=== PATIENT | female | born 1955 | race African-American/Black ===

== ENCOUNTER 2016-12-20 08:00 | Observation (INO) | payer OTHER ==
[2016-12-20] MEDS ORDERED: IPRATROPIUM/ALBUTEROL SULFATE 3 ML AMPUL.NEB NEB ONE (08:04)
[2016-12-20] MEDS ORDERED: ALBUTEROL SULFATE 2.5 MG/3 ML AMPUL.NEB NEB ONE (08:23)
[2016-12-20 08:31] LABS: BASOPHILS % 1.4 (0.0-1.5); EOSINOPHILS % 3.1 % (0.0-6.8); MEAN CORPUSCULAR HEMOGLOBIN 28.9 pg (28.0-34.0); MEAN CORPUSCULAR VOLUME 89.4 fl (80.0-100.0)
[2016-12-20 08:41] LABS: eGFR (African) > 60; eGFR (Non-African) > 60
[2016-12-20] MEDS ORDERED: LEVOFLOXACIN 250MG/D5W 50ML 250 MG in PREMIX BAG 1 BAG IV ONE (09:22)
[2016-12-20] MEDS ORDERED: LEVOFLOXACIN 500MG/D5W 100ML 500 MG in PREMIX BAG 1 BAG IV ONE (09:22)
[2016-12-20] MEDS ORDERED: methylPREDNISolone SOD SUCC 125 MG/2 ML VIAL IVP ONE (09:22)
--- NOTE | 2016-12-20 09:31 | ED Physician Documentation ---
Dyspnea - HISTORIAN Historian: patient - HPI Stated Complaint: short of breath Chief Complaint: Dyspnea Onset: days ago Duration: worse Initiating Event: upper respiratory illness Severity: severe Exacerbated By: exertion, coughing Associated Symptoms: chills, fever, sweating, productive cough. denies: chest pain, chest discomfort, bloody cough, dizziness, muscle spasms Further Comments: yes (61 year old female patient presents with complaint of chills, cough, and SOB. Patient states her symptoms started a few days ago, reports worsening symptoms. Patient reports she does not have a primary care doctor.) - ROS CONST: no problems EYES/ENT: nasal drainage, nasal congestion GI/: none NEURO/PSYCH: denies: headache MS/SKIN/LYMPH: none - PAST HX Lung Disease: none Cardiac Disease: none PE Risk Factors: none Surgeries/Procedures: cardiac cath (Coronary stents - 10 years ago, at [facility]), other ( x 3) Allergies/Adverse Reactions: Allergies Allergy/AdvReac Type Severity Reaction Status Date / Time Penicillins Allergy Verified 12/20/16 08:30 Home Medications: Ambulatory Orders Medication Instructions Recorded NK [NK] 12/20/16 - SOCIAL HX Smoking History: cigarettes - FAMILY HX Family History: denies: none - VITAL SIGNS Vital Signs: Vital Signs Temp Pulse Resp BP Pulse Ox 97.9 F 88 32 H 165/89 100 12/20/16 08:01 12/20/16 08:31 12/20/16 08:01 12/20/16 08:01 12/20/16 08:31 - REVIEWED ASSESSMENTS Nursing Assessment Reviewed: Yes Vitals Reviewed: Yes Progress - Progress Progress: Reviewed lab and chest xray results. Discussed treatment options. Patient does not have nebulizer machine at home. Work of breathing decreased with O2 on. Recommended observation admission for IV antibiotics, breathing treatments and monitoring. Patient agrees with plan of care. - EKG/XRAY/CT EKG: rhythm (SR, rate 89) ED Results Lab/Radiology - Lab Results Lab Results: Lab Results 12/20/16 12/20/16 08:25 08:25 WBC 8.30 K/ul K/ul (4.00-12.00) RBC 5.24 M/ul H M/ul (3.90-5.20) Hgb 15.1 g/dL g/dL (12.0-16.0) Hct 46.8 % H % (34.5-46.5) MCV 89.4 fl fl (80.0-100.0) MCH 28.9 pg pg (28.0-34.0) MCHC 32.3 g/dL g/dL (30.0-36.0) RDW 13.1 % % (11.3-14.3) Plt Count 247 K/mm3 K/mm3 (130-400) Neut % (Auto) 60.7 % % (39.0-79.0) Lymph % (Auto) 27.9 % % (16.0-50.0) Gallia % (Auto) 5.0 % % (0.0-11.0) Eos % (Auto) 3.1 % % (0.0-6.8) Baso % (Auto) 1.4 (0.0-1.5) Neut # (Auto) 5.0 # k/uL # k/uL (1.4-7.7) Lymph # (Auto) 2.3 # k/uL # k/uL (0.6-4.0) Gallia # (Auto) 0.4 # k/uL # k/uL (0.0-0.9) Eos # (Auto) 0.3 # k/uL # k/uL (0.0-0.6) Baso # (Auto) 0.1 # k/uL # k/uL (0.0-0.5) Reactive Lymphs % 1.9 % % (0.0-5.0) Reactive Lymphs # 0.2 # k/uL # k/uL (0.0-0.8) Sodium 136 mmol/L L mmol/L (137-145) Potassium 4.4 mmol/L mmol/L (3.5-5.1) Chloride 105 mmol/L mmol/L (98-107) Carbon Dioxide 24 mmol/L mmol/L (22-30) BUN 12 mg/dL mg/dL (7-17) Creatinine 1.10 mg/dL H mg/dL (0.52-1.04) Estimated Creat Clear 74 Est GFR ( Amer) > 60 (60 - ) Est GFR (Non-Af Amer) > 60 (60 - ) Glucose 130 mg/dL H mg/dL (74-106) Calcium 9.5 mg/dL mg/dL (8.4-10.2) Total Bilirubin 0.8 mg/dL mg/dL (0.2-1.3) AST 23 U/L U/L (15-46) ALT 27 U/L U/L (13-69) Alkaline Phosphatase 111 U/L U/L (38-126) Total Protein 8.4 g/dL H g/dL (6.3-8.2) Albumin 4.1 g/dL g/dL (3.5-5.0) - Radiology Radiology Impressions: Examination: PA and lateral chest. History: Evaluate lung vu. Comparison exam: None provided Findings: PA lateral chest demonstrate a normal cardiac and mediastinal silhouette. Haziness at the right lung base Blunting of the right costophrenic margins. Left hemithorax without gross abnormality. Osseous structures are appropriate for age. Impression: Right lung base infiltrate/effusion. Electronically signed on Dec 20, 2016 9:06:21 AM FERRY OPERATOR by: Zac Eastman - Orders Orders: ED Orders Category Date Time Status Continuous EKG monitoring Q30M Care 12/20/16 08:23 Active Continuous Pulse Oximetry Q30M Care 12/20/16 08:[address] IV Lock 1T Care 12/20/16 08:23 Active CHEST 2 VIEW [CHEST P.A.&LAT 2 VIEWS] [RAD] Stat Exams 12/20/16 Taken BLOOD CULTURE Stat Lab 12/20/16 Ordered CBC/PLATELET/DIFF Stat Lab 12/20/16 08:25 Completed CMP Stat Lab 12/20/16 08:25 Completed Albuterol Sulfate [Ventolin] Med 12/20/16 08:23 Discontinued 2.5 mg NEB .STK-MED ONE Ipratropium/Albuterol Sulfate [Duoneb] Med 12/20/16 08:04 Discontinued 3 ml NEB .STK-MED ONE Levofloxacin 250Mg/D5w 50Ml [Levaquin] 250 mg Med 12/20/16 09:22 Ordered Premix Bag [Premix Fluid] 1 bag IV NOW Levofloxacin 500Mg/D5w 100Ml [Levaquin] 500 mg Med 12/20/16 09:22 Ordered Premix Bag [Premix Fluid] 1 bag IV NOW methylPREDNISolone SOD SUCC [Solu-MEDROL] Med 11/08/17 09:22 Once 125 mg IVP NOW ONE Oxygen Daily Oxygen 12/20/16 08:30 Ordered EKG WITH COMPARISON Stat Ther 12/20/16 08:23 Ordered Dyspnea Physical Exam - EXAM General Appearance: moderate distress EENT: eye inspection normal, ENT inspection normal, pharynx normal, no signs of dehydration, CLARI, no nystagmus, TM's nml Respiratory: no pain on inspiration, speaks full sentences, accessory muscle use (increased work of breathing, RR 24-28), wheezes (expiratory bilateral), rhonchi (Bilateral bases; right base > left base) Abdomen: non-tender, no organomegaly, no distention, no ascites Skin: color nml, no rash, warm, nml palp., dry Extremities: non-tender, normal range of motion, no evidence of injury, no edema , J, MEDICAL RECEPTIONIST Neuro/Psych: oriented x3, CN's nml as tested, motor nml, sensation nml, mood/ affect nml Discharge Clincal Impression: Tobacco abuse, COPD exacerbation CAP (community acquired pneumonia) Qualifiers: Laterality: right Lung location: lower lobe of lung Qualified Code(s): J18.1 - Lobar pneumonia, unspecified organism Condition: Good Disposition: ADMITTED INPATIENT Decision to Admit: NO Decision Time: 09:36
[2016-12-20] MEDS ORDERED: LEVOFLOXACIN 250MG/D5W 50ML 50 ML IV ONE (09:35)
[2016-12-20] MEDS ORDERED: LEVOFLOXACIN 500MG/D5W 100ML 100 ML IV ONE (09:35)
[2016-12-20 10:27] VITALS: BMI 33.8
[2016-12-20] MEDS ORDERED: SALINE FLUSH 10 ML DISP.SYRIN IVF ONE (10:49)
[2016-12-20] MEDS: IPRATROPIUM/ALBUTEROL SULFATE 3 ML AMPUL.NEB NEB SCH ×2 (12:33→17:27)
--- NOTE | 2016-12-20 15:42 | Diagnostic Imaging Report ---
PABLO VILLASEÑOR (MONTY) - ER [facility] [address] [facility] [address] [place], [place]. [address] Report Submission Date: Dec 20, 2016 9:06:21 AM RAISIN WASHER Patient Study Name: PEDRO DIANE Date: Dec 20, 2016 8:46:19 AM RAISIN WASHER Modality Type: CR Gender: F Description: CHEST : 51 Institution: [facility] Physician: PBALO VILLASEÑOR (MONTY) - ER Examination: PA and lateral chest. History: Evaluate lung vu. Comparison exam: None provided Findings: PA lateral chest demonstrate a normal cardiac and mediastinal silhouette. Haziness at the right lung base Blunting of the right costophrenic margins. Left hemithorax without gross abnormality. Osseous structures are appropriate for age. Impression: Right lung base infiltrate/effusion. Electronically signed on Dec 20, 2016 9:06:21 AM RAISIN WASHER by: Zac FRENCH
[2016-12-20] MEDS: IBUPROFEN 200 MG TABLET PO PRN (16:46)
[2016-12-20] MEDS: methylPREDNISolone SOD SUCC 40 MG/ML VIAL IVP SCH (20:15)
[2016-12-21] MEDS: IPRATROPIUM/ALBUTEROL SULFATE 3 ML AMPUL.NEB NEB SCH ×4 (00:50→17:38)
[2016-12-21 07:19] LABS: MEAN CORPUSCULAR HEMOGLOBIN 28.5 pg (28.0-34.0); MEAN CORPUSCULAR VOLUME 88.8 fl (80.0-100.0)
[2016-12-21 07:58] LABS: SEGMENTED NEUTROPHILS % 75 % (39-79)
[2016-12-21 07:59] LABS: MONOCYTES % 2 % (0-11)
[2016-12-21 08:01] LABS: eGFR (African) > 60; eGFR (Non-African) > 60
--- NOTE | 2016-12-21 08:32 | Discharge Summary ---
Discharge Summary - Discharge Sumary Condition at Discharge: Stable Home Medications: Ambulatory Orders Medication Instructions Recorded NK [NK] 12/20/16 Consultations this Visit: None Procedures this Visit: None Allergies/Adverse Reactions: Allergies Allergy/AdvReac Type Severity Reaction Status Date / Time Penicillins Allergy Verified 12/20/16 08:30 Patient Problems: Current Active Problems Problem Status Onset CAP (community acquired pneumonia) Acute COPD exacerbation Acute Tobacco abuse Acute
[2016-12-21] MEDS ORDERED: LEVOFLOXACIN 250MG/D5W 50ML 250 MG in PREMIX BAG 1 BAG IV SCH (09:00)
[2016-12-21] MEDS ORDERED: LEVOFLOXACIN 500MG/D5W 100ML 500 MG in PREMIX BAG 1 BAG IV SCH (09:00)
[2016-12-21] MEDS ORDERED: LEVOFLOXACIN 250MG/D5W 50ML 50 ML IV ONE (09:05)
[2016-12-21] MEDS ORDERED: LEVOFLOXACIN 500MG/D5W 100ML 100 ML IV ONE (09:05)
[2016-12-21] MEDS ORDERED: SALINE FLUSH 10 ML DISP.SYRIN IVF ONE ×3 (09:05→12:16)
[2016-12-21] MEDS: methylPREDNISolone SOD SUCC 40 MG/ML VIAL IVP SCH (09:09)
[2016-12-21] MEDS: IBUPROFEN 200 MG TABLET PO PRN (15:56)
[2016-12-21 18:24] VITALS: BP 129/74
--- NOTE | 2017-01-23 20:17 | Discharge Summary ---
Discharge Summary - Discharge Sumary History of Present Illness: 61-year-old white female with a history of COPD. Several days prior to admission patient started developing a productive cough is green to yellow phlegm. No home offices for noted. Patient does have a fever initiated with and chills. Patient is not established the primary care provider. Patient subsequently came to the emergency room for evaluation. Patient was found to have a right lower lobe pneumonia. After several breathing treatment patient continued to have some wheezing. Patient did not have a nebulizer or inhaler at home. Patient was subsequently admitted to the hospital for further care and evaluation. Patient did have home oxygen that she used PRN. Condition at Discharge: Stable Home Medications: Ambulatory Orders Medication Instructions Recorded Albuterol Sulfate [Ventolin HFN] 2.5 mg NEB Q4 PRN #60 ml 12/21/16 guaiFENesin/CODEINE PHOS 5ML 5 ml PO Q4H PRN #60 liquid 01/01/17 [Robitussin AC] Consultations this Visit: None Procedures this Visit: None Allergies/Adverse Reactions: Allergies Allergy/AdvReac Type Severity Reaction Status Date / Time Penicillins Allergy Intermediate Eyes Verified 01/01/17 04:50 watering Discharge Summary: Patient was started on IV Levaquin for antibiotic therapy. Patient was started on IV Solu-Medrol and hypo nebulization treatment for doing that. Patient [place] was initially 8300 but did increased to 12,400 probably related the steroids. Patient did develop some hyperglycemia again possibly related to the steroids. Patient did have some mild elevation in her creatinine. With the breathing treatment and IV antibiotic patient symptoms did improve and at the time of dismissal patient was standing 97% on room air. It was felt that the patient could be managed as an outpatient was subsequently discharged home in stable condition. Patient was encouraged to get established with her primary care provider. - Final Diagnosis (1) RLL pneumonia Problems: Continue with PO Levaquin and. Oxygen therapy as needed. Patient was advised to use the Mucinex as needed. Patient will be placed on tapering dose of steroids (2) CKD (chronic kidney disease) stage 1, GFR 90 ml/min or greater Problems: Patient was advised to get established with her primary care provider to have this evaluated.
== END 2016-12-21 17:55 | disposition home or self-care (01) ==
LOC: ED 08:00 → SOUTH 09:25
PROVIDERS: ADMIT Emergency Medicine; ATTEND Emergency Medicine
DX: J44.1 Chronic obstructive pulmonary disease with (acute) exacerbation (principal); F17.210 Nicotine dependence, cigarettes, uncomplicated
CPT/HCPCS: 36415; 71020; 80048; 80053; 85025; 87040; 93005; 94640; 96365; 96366; 96374; 96376; 99284; G0378; J1956; J2920; J2930; 99217; 99285; J1030; S1016

== ENCOUNTER 2017-01-01 04:20 | Emergency (ER) | payer OTHER ==
[~2017-01-01 04:20] MED LIST: ALBUTEROL SULFATE 2.5 MG/3 ML AMPUL.NEB NEB ONE
[2017-01-01] MEDS ORDERED: ALBUTEROL SULFATE 2.5 MG/3 ML AMPUL.NEB NEB ONE (04:29)
[2017-01-01] MEDS ORDERED: IPRATROPIUM/ALBUTEROL SULFATE 3 ML AMPUL.NEB NEB ONE ×2 (04:42→04:45)
--- NOTE | 2017-01-01 04:57 | ED Physician Documentation ---
Dyspnea - HISTORIAN Historian: patient, friend - HPI Stated Complaint: soa Chief Complaint: Dyspnea Additional Information: exab sob takes alb neb at home. hosp [facility] pneumonia dismissed 12-21-16 has ret to work adm few puffs off cigarette -prog sob cough. sig wheeze on chest auscultation on adm tonight. Onset: other (progressive past several hours.) Duration: continues in ED Initiating Event: out of meds Severity: moderate Exacerbated By: change in position, exertion Associated Symptoms: productive cough (yellow green). denies: chills, fever, sweating, chest pain - ROS CONST: no problems EYES/ENT: denies: problems with vision GI/: none. denies: vomiting, nausea MS/SKIN/LYMPH: none. denies: neck pain, rash, back pain - PAST HX Lung Disease: COPD, other (recent pneumonia) PE Risk Factors: other (ischemic heart disease-had one stent) Surgeries/Procedures: cardiac cath, cardiac stent Allergies/Adverse Reactions: Allergies Allergy/AdvReac Type Severity Reaction Status Date / Time Penicillins Allergy Intermediate Eyes Verified 01/01/17 04:50 watering Home Medications: Ambulatory Orders Medication Instructions Recorded Albuterol Sulfate [Ventolin HFN] 2.5 mg NEB Q4 PRN #60 ml 12/21/16 - SOCIAL HX Smoking History: cigarettes Alcohol Use: none Drug Use: none - FAMILY HX Family History: no significant history - VITAL SIGNS Vital Signs: Vital Signs Temp Pulse Resp BP Pulse Ox 121 H 26 H 177/86 90 L 01/01/17 04:24 01/01/17 04:24 01/01/17 04:24 01/01/17 04:24 - REVIEWED ASSESSMENTS Nursing Assessment Reviewed: Yes Vitals Reviewed: Yes ED Results Lab/Radiology - Orders Orders: ED Orders Category Date Time Status CHEST 2 VIEW [CHEST P.A.&LAT 2 VIEWS] [RAD] Stat Exams 01/01/17 Ordered Albuterol Sulfate [Ventolin] Med 01/01/17 04:29 Discontinued 2.5 mg NEB .STK-MED ONE Albuterol Sulfate [Ventolin] Med 01/01/17 04:20 Once 2.5 mg NEB NOW ONE Ipratropium/Albuterol Sulfate [Duoneb] Med 01/01/17 04:42 Discontinued 3 ml NEB .STK-MED ONE Ipratropium/Albuterol Sulfate [Duoneb] Med 01/01/17 04:45 Once 3 ml NEB NOW ONE Dyspnea Physical Exam - EXAM General Appearance: mild distress EENT: eye inspection normal Neck: nml inspection Respiratory: speaks full sentences, wheezes, rales, rhonchi. No: breath sounds nml CVS: reg. rate & rhythm Abdomen: non-tender Skin: color nml. No: no rash, cyanosis, diaphoresis Extremities: non-tender, normal range of motion Neuro/Psych: oriented x3 Discharge Clincal Impression: improved pneumonia, exaberation copd-improved Comments: home stop cigarettes use albuterol as directed Condition: Good Disposition: 01 HOME, SELF-CARE Decision to Admit: NO Decision Time: 05:41
[2017-01-01] MEDS ORDERED: methylPREDNISolone ACETATE 80 MG/ML VIAL IM PRN (05:01)
--- NOTE | 2017-01-01 05:25 | Diagnostic Imaging Report ---
SAMI ALVAREZ [facility] [address] [facility] [address] [address] Report Submission Date: Jan 01, 2017 5:20:13 AM FREIGHT RECEIVER Patient Study Name: PEDRO DIANE Date: Jan 01, 2017 5:05:09 AM FREIGHT RECEIVER Modality Type: CR Gender: F Description: CHEST : 51 Institution: [facility] Physician: SAMI ALVAREZ Chest-2 views Clinical history: Shortness of breath and cough beginning 12/31/2016. Findings: Examination of the chest in PA and lateral views comparison to examination of 12/20/2016 demonstrates improved aeration in the right lung with decreased right basilar infiltrate. Small right effusion blunts the right costophrenic angle. The cardiovascular and mediastinal silhouettes are stable. The bony thorax is intact. Impression: 1. Improved aeration right lung with residual infiltrate or atelectasis and small right effusion. Electronically signed on Jan 01, 2017 5:20:13 AM FREIGHT RECEIVER by: Hubert FRENCH
[2017-01-01 06:21] VITALS: BP 147/88
== END 2017-01-01 06:15 | disposition home or self-care (01) ==
LOC: ED 04:20
DX: J18.9 Pneumonia, unspecified organism (principal); J44.1 Chronic obstructive pulmonary disease with (acute) exacerbation
CPT/HCPCS: 71020; 99283